=== PATIENT | male | born 1955 | race American Indian/Alaskan Native ===

== ENCOUNTER 2018-05-18 11:22 | Emergency (ER) | payer OTHER ==
[2018-05-18] MEDS ORDERED: Sodium Chloride 0.9% 1,000 ML IV STA (12:12)
[2018-05-18 12:30] LABS: BASO % 0.9 % (0.0-2.0); EOS % 0.3 % (0.0-4.0); HEMOGLOBIN 12.4 g/dL (12.0-18.0); LYMPH # 1.2 K/uL (1.0-4.3); LYMPH % 27.8 % (20.0-40.0); MEAN CELL VOLUME 87.9 fL (80.0-94.0); MEAN CORPUSCULAR HEMOGLOBIN 30.3 pg (27.0-31.0); MEAN CORPUSCULAR HGB CONC 34.5 g/dL (33.0-37.0); MEAN PLATELET VOLUME 7.8 fL (7.2-11.7); MONO # 0.4 K/uL (0.0-0.8); MONO % 8.7 % (0.0-10.0); NEUT # 2.6 K/uL (1.8-7.0); NEUT % 62.3 % (50.0-75.0); NRBC % 0.1 % (0.0-2.0); RBC 4.09 Mil/uL (4.40-5.90); RED CELL DISTRIBUTION WIDTH 13.3 % (11.5-14.5); WHITE BLOOD COUNT 4.2 K/uL (4.8-10.8)
[2018-05-18 12:34] LABS: INR 1.3; PROTHROMBIN TIME 14.3 SECONDS (9.7-12.2)
[2018-05-18 12:40] LABS: ALB/GLOB RATIO 1.3 (1.0-2.1); ALBUMIN 4.7 g/dL (3.5-5.0); ALT/SGPT 25 U/L (21-72); AMYLASE 134 U/L (30-110); AST/SGOT 20 U/L (17-59); BLOOD UREA NITROGEN 17 mg/dL (9-20); CALCIUM 9.6 mg/dl (8.6-10.4); GFR NON-AFRICAN AMERICAN 56; LIPASE 224 U/L (23-300)
--- NOTE | 2018-05-18 12:54 | CT ---
Date of service: 05/18/2018 PROCEDURE: CT HEAD WITHOUT CONTRAST. HISTORY: headache COMPARISON: None available. TECHNIQUE: Axial computed tomography images were obtained through the head/brain without intravenous contrast. Radiation dose: Total exam DLP = 1104.49 mGy-cm. This CT exam was performed using one or more of the following dose reduction techniques: Automated exposure control, adjustment of the mA and/or kV according to patient size, and/or use of iterative reconstruction technique. FINDINGS: HEMORRHAGE: No intracranial hemorrhage. BRAIN: No mass effect or edema. Mild scattered white matter hypodensities, which are nonspecific, but often seen with chronic microvascular ischemic disease. Please note that MRI with diffusion imaging is more sensitive in the detection of acute ischemic event. VENTRICLES: No hydrocephalus. CALVARIUM: Unremarkable. PARANASAL SINUSES: Mucosal thickening/opacification of the left maxillary sinus. Mucosal thickening of the right maxillary sinus, ethmoid air cells, frontal sinuses, and sphenoid sinuses. MASTOID AIR CELLS: Unremarkable as visualized. No inflammatory changes. OTHER FINDINGS: None. IMPRESSION: No acute intracranial pathology identified. Mucosal thickening/opacification of the sinuses as above; correlate for sinusitis.
[2018-05-18 12:58] LABS: CK-MB < 0.22 ng/mL (0.0-3.38)
--- NOTE | 2018-05-18 13:06 | RAD ---
Chest x-ray single frontal view History: Weakness. Comparison: None available. Findings: Mild to moderate venous congestion. Patchy increased markings at the left lung base. Atherosclerotic calcification at the aortic knob. Cardiomegaly. Degenerative changes the spine and shoulders. Impression: Mild to moderate venous congestion. Patchy increased markings at the left lung base. Atherosclerotic calcification at the aortic knob. Cardiomegaly.
[2018-05-18] MEDS ORDERED: Sodium Chloride 0.9% 1,000 ML ONE (13:12)
[2018-05-18 13:17] VITALS: BP 136/79; PULSE 67; RESP 18; TEMP 98.4; O2SAT 99
[2018-05-18 13:21] LABS: SQUAMOUS EPITHIAL 2 /hpf (0-5); URINE BACTERIA RARE (<OCC); URINE BILIRUBIN NEGATIVE (NEGATIVE); URINE BLOOD NEGATIVE (NEGATIVE); URINE CLARITY Clear (Clear); URINE COLOR Amber (YELLOW); URINE GLUCOSE (UA) NORMAL (Normal); URINE LEUKOCYTE ESTERASE NEG Leu/uL (Negative); URINE PROTEIN 1+ mg/dL (NEGATIVE)
--- NOTE | 2018-05-18 13:34 | C.PDOC ---
History Of Present Illness 63 year old male presents to the ED for evaluation. Patient states he has been feeling unwell, experiencing generalized weakness and headache since yesterday. Patient states his neighbor has been "scanning" him. Patient denies any past medical history, but also states that he does not regularly follow-up with a doctor. Patient was last evaluated by a doctor at a different hospital around 2- 3 weeks ago for similar complaint, but cannot recall the name of the facility. Patient denies fever, chills. Chief Complaint (Nursing): Weakness/Neurological Deficit History Per: Patient History/Exam Limitations: no limitations Onset/Duration Of Symptoms: Hrs Current Symptoms Are (Timing): Still Present Additional History Per: Patient Past Medical History Reviewed: Historical Data, Nursing Documentation, Vital Signs Vital Signs: Last Vital Signs Temp 98.4 F 05/18/18 13:17 Pulse 67 05/18/18 13:17 Resp 18 05/18/18 13:17 BP 136/79 05/18/18 13:17 Pulse Ox 99 05/18/18 13:17 - Medical History PMH: No Chronic Diseases Surgical History: No Surg Hx Family History: States: Unknown Family Hx - Social History Hx Alcohol Use: Yes Hx Substance Use: No Review Of Systems Constitutional: Positive for: Weakness. Negative for: Fever, Chills Neurological: Positive for: Headache Physical Exam - Physical Exam Appears: Non-toxic, No Acute Distress Skin: Normal Color, Warm, Dry Head: Atraumatic, Normacephalic Eye(s): bilateral: Normal Inspection Oral Mucosa: Moist Neck: Normal ROM, Supple Chest: Symmetrical, No Deformity, No Tenderness Cardiovascular: Rhythm Regular, No Murmur Respiratory: Normal Breath Sounds, No Rales, No Rhonchi, No Wheezing Extremity: Normal ROM, Capillary Refill (less than 2 seconds ) Neurological/Psych: Oriented x3, Normal Speech, Normal Cognition ED Course And Treatment - Laboratory Results Result Diagrams: 05/18/18 12:22 05/18/18 12:22 Lab Results: PT 14.3 SECONDS (9.7-12.2) H 05/18/18 12:22 INR 1.3 05/18/18 12:22 APTT 31 SECONDS (21-34) 05/18/18 12:22 Troponin I < 0.0120 ng/mL (0.00-0.120) 05/18/18 12:22 Total Bilirubin 1.2 mg/dL (0.2-1.3) 05/18/18 12:22 AST 20 U/L (17-59) 05/18/18 12:22 ALT 25 U/L (21-72) 05/18/18 12:22 Alkaline Phosphatase 64 U/L (38-126) 05/18/18 12:22 Total Protein 8.3 g/dL (6.3-8.3) 05/18/18 12:22 Albumin 4.7 g/dL (3.5-5.0) 05/18/18 12:22 Globulin 3.5 gm/dL (2.2-3.9) 05/18/18 12:22 Albumin/Globulin Ratio 1.3 (1.0-2.1) 05/18/18 12:22 Amylase 134 U/L (30-110) H 05/18/18 12:22 Lipase 224 U/L (23-300) 05/18/18 12:22 Urine Color Clari (YELLOW) 05/18/18 13:07 Urine Clarity Clear (Clear) 05/18/18 13:07 Urine pH 5.0 (5.0-8.0) 05/18/18 13:07 Ur Specific [place] 1.031 (1.003-1.030) H 05/18/18 13:07 Urine Protein 1+ mg/dL (NEGATIVE) H 05/18/18 13:07 Urine Glucose (UA) Normal mg/dL (Normal) 05/18/18 13:07 Urine Ketones Trace mg/dL (NEGATIVE) 05/18/18 13:07 Urine Blood Negative (NEGATIVE) 05/18/18 13:07 Urine Nitrate Negative (NEGATIVE) 05/18/18 13:07 Urine Bilirubin Negative (NEGATIVE) 05/18/18 13:07 Urine Urobilinogen 4.0 mg/dL (0.2-1.0) 05/18/18 13:07 Ur Leukocyte Esterase Neg Shari/uL (Negative) 05/18/18 13:07 Urine WBC (Auto) 7 /hpf (0-5) H 05/18/18 13:07 Urine RBC (Auto) 2 /hpf (0-3) 05/18/18 13:07 Ur Squamous Epith Cells 2 /hpf (0-5) 05/18/18 13:07 Urine Bacteria Rare (<OCC) 05/18/18 13:07 O2 Sat by Pulse Oximetry: 99 (on RA) Pulse Ox Interpretation: Normal - Other Rad CXR X-Ray: Viewed By Me, Read By Radiologist Interpretation: Chest x-ray single frontal view. History: Weakness. Comparison: None available. Findings: Mild to moderate venous congestion. Patchy increased markings at the left lung base. Atherosclerotic calcification at the aortic knob. Cardiomegaly. Degenerative changes the spine and shoulders. Impression: Mild to moderate venous congestion. Patchy increased markings at the left lung base. Atherosclerotic calcification at the aortic knob. Cardiomegaly. - CT Scan/US CT Head Other Rad Studies (CT/US): Read By Radiologist, Radiology Report Reviewed CT/US Interpretation: Date of service: 05/18/2018. PROCEDURE: CT HEAD WITHOUT CONTRAST. HISTORY: headache. COMPARISON: None available. TECHNIQUE: Axial computed tomography images were obtained through the head/brain without int ravenous contrast. Radiation dose: Total exam DLP = 1104.49 mGy-cm. This CT exam was performed using one or more of the following dose reduction techniques: Automated exposure control, adjustment of the mA and/or kV according to patient size, and/or use of iterative reconstruction technique. FINDINGS: HEMORRHAGE: No intracranial hemorrhage. BRAIN: No mass effect or edema. Mild scattered w nichelle matter hypodensities, which are nonspecific, but often seen with chronic microvascular ischemic disease. Please note that MRI with diffusion imaging is more sensitive in the detection of acute ischemic event. VENTRICLES: No hydrocephalus. CALVARIUM: Unremarkable. PARANASAL SINUSES: Mucosal thickening/opacification of the left maxillary sinus. Mucosal thickening of the right maxillary sinus, ethmoid air cells, frontal sinuses, and sphenoid sinuses. MASTOID AIR CELLS: Unremarkable as visualized. No inflammatory changes. OTHER FINDINGS: None. IMPRESSION: No acute intracranial pathology identified. Mucosal thickening/opacification of the sinuses as above; correlate for sinusit is. Progress Note: Bloodwork, urinalysis, CT Head, CXR, EKG, Flu swab ordered and reviewed. Patient is negative for Flu A/B. IV Fluids given. Patient will be evaluated by platform worker. Disposition - Disposition Referrals: [facility] at [facility] [Outside] [employer] [facility] [Outside] Disposition: HOME/ ROUTINE Disposition Time: 14:27 Condition: STABLE Additional Instructions: Follow up with Clinic/PMD within 1-2 days. Return to ED if feel worse. 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 - Scribe Statement The provider has reviewed the documentation as recorded by the Scribe (Rebecca Thompson) All medical record entries made by the Scribe were at my direction and perso eulalia dictated by me. I have reviewed the chart and agree that the record accurately reflects my personal performance of the history, physical exam, medical decision making, and the department course for this patient. I have also personally directed, reviewed, and agree with the discharge instructions and disposition.
[2018-05-18 13:39] LABS: BARBITURATES, UR NEGATIVE (NEGATIVE); BENZODIAZEPINES, UR NEGATIVE (NEGATIVE); OPIATES, UR NEGATIVE (NEGATIVE); PHENCYCLIDINE, UR NEGATIVE (NEGATIVE)
== END 2018-05-18 15:35 | disposition home or self-care (01) ==
LOC: C.ER 11:22
DX: R51 Headache (principal)
CPT/HCPCS: 70450; 71045; 80053; 80320; 80324; 80345; 80346; 80349; 80353; 80358; 80361; 81001; 82150; 82550; 82553; 83690; 83735; 83992; 84100; 84484; 85025; 85610; 85730; 87804; 93005; 96360; 99285; J7030